=== PATIENT | female | born 1985 | race Caucasian/White ===

== ENCOUNTER → 2016-08-24 | Outpatient (CLI) | payer OTHER ==
[~2016-08-24] MED LIST: AUGMENTIN PO; BENADRYL-DPS25 MG PO; CELEXA20 MG PO; CELEXA40 MG PO; CLEOCIN HCL300 MG PO; COLACE-DPS100 MG PO; CONCERTA18 MG PO; CONCERTA54 MG PO; MAALOX DPS30 ML PO; MIRALAX PACKET17 GM PO; MOTRIN-DPS400 MG PO; PEPCID DPS20 MG PO; PREDNISONE10 MG PO; REGLAN DPS5 MG PO; RISPERDAL0.25 MG PO; SENOKOT DPS8.6 MG PO; TOPAMAX100 MG PO; TYLENOL DPS325 MG PO; ZOFRAN4 MG PO
== END | disposition home or self-care (01) ==
LOC: RAD.S 09:00
DX: K61.3 Ischiorectal abscess (principal)

== ENCOUNTER 2016-09-15 07:13 | Emergency (ER) | payer OTHER ==
--- NOTE | 2016-09-18 13:18 | ER ---
ADMIT: 09/15/2016 RM/LOC: [facility] MR#: [id number] [id number] RODRIGO RUEDAANDRA Landy [address] [place] [address] Emergency Room Report SEX: F AGE: 31 : 1985 DATE: 09/15/2016 TIME: 0713 hours. HISTORY OF PRESENT ILLNESS: Briefly, the patient is a 31-year-old over the last couple months has had 5 rectal surgeries for perirectal abscesses. Last one was about a week ago that was actually done in [place]. She says she has packing in, she is supposed to see Wound Care tomorrow morning, but she says she is still having the same pain she had 1 week now, status post the surgery and she said the packing started to smell a little bit. She is supposed to be pulling it out, but has not. PHYSICAL EXAMINATION: VITAL SIGNS: Stable. She is afebrile. HEENT: Grossly normal. RECTUM: Rectal area shows packing still in. There is no evidence of recollection of fluid. There is induration, but no redness, no severe tenderness. She is diffusely tender all over, but does not localize. EMERGENCY DEPARTMENT COURSE: I had a long discussion with her, she did not want me to mess with the pack at this time. She said Wound Care will see her tomorrow, she has that less than 24 hours. I gave her dose of Flagyl and 2 Ultram. She is ready for discharge. ASSESSMENT: Rectal pain, status post incision and drainage. PLAN: Keep her appointment with Wound Care tomorrow. Return if worse. Continue care with Flagyl 500 mg t.i.d. for 7 days and Ultram, I gave her #15. Morro Zimmer MD/ jeffrey JOB #: [id number] CC: Morro Zimmer MD, Attending Physician MD Arnulfo Granado MD
== END 2016-09-15 08:10 | disposition home or self-care (01) ==
LOC: ER 07:13
DX: K62.89 Other specified diseases of anus and rectum (principal); G89.18 Other acute postprocedural pain; Z88.8 Allergy status to other drugs, medicaments and biological substances; Z79.899 Other long term (current) drug therapy